=== PATIENT | female | born 1975 | race Caucasian/White ===

== ENCOUNTER → 2020-08-20 | Outpatient (CLI) | payer OTHER ==
[~2020-08-20] MED LIST: ALDACTONE50 MG PO; AUGMENTIN 875-1 EACH PO; BENTYL 20MG TAB20 MG PO; ESTRACE2 MG PO; IBU600 MG PO; LOPRESSOR 25 MG25 MG PO; PHENERGAN 25 MG25 M1 PO; PREDNISONE 20 M20 MG PO; PROTONIX40 MG PO; ROBAXIN500 MG PO; VISTARIL 50 MG50 MG PO
[2020-08-20 19:19] LABS: HEMOGLOBIN 13.9 gm/dl (12.3-15.3); RED BLOOD COUNT 4.73 M/UL (4.00-5.10); WHITE BLOOD COUNT 10.5 K/UL (4.5-11.0)
[2020-08-20 19:47] LABS: BUN/CREATININE RATIO 16 (0-10)
== END ==
LOC: LAB 17:37
PROVIDERS: Nurse Practitioner Family
DX: F41.9 Anxiety disorder, unspecified (principal); E66.9 Obesity, unspecified
CPT/HCPCS: 80053; 80061; 81001; 84439; 84443; 85025

== ENCOUNTER → 2021-06-08 | Outpatient (CLI) | payer OTHER ==
[2021-06-08 13:19] LABS: HEMOGLOBIN 13.7 gm/dl (12.3-15.3); RED BLOOD COUNT 4.73 M/UL (4.00-5.10); WHITE BLOOD COUNT 9.2 K/UL (4.5-11.0)
[2021-06-08 13:52] LABS: BUN/CREATININE RATIO 13 (0-10)
== END ==
LOC: LAB 12:17
PROVIDERS: Nurse Practitioner Family
DX: M25.562 Pain in left knee (principal); I10 Essential (primary) hypertension; E78.5 Hyperlipidemia, unspecified; F41.9 Anxiety disorder, unspecified; M54.50 Low back pain, unspecified; M17.12 Unilateral primary osteoarthritis, left knee
CPT/HCPCS: 36415; 72100; 73562; 80053; 80061; 81001; 84439; 84443; 84550; 85025; 85652; 86140

== ENCOUNTER 2021-06-13 15:34 | Emergency (ER) | payer OTHER | END 2021-06-13 20:00 | disposition home or self-care (01) | LOC: ER1 15:34 | DX: M79.89 Other specified soft tissue disorders (principal) | CPT/HCPCS: 99283 ==

== ENCOUNTER → 2021-06-15 | Outpatient (CLI) | payer OTHER | LOC: EXRD 14:30 | DX: M79.662 Pain in left lower leg (principal); E27.8 Other specified disorders of adrenal gland | CPT/HCPCS: 93971 ==

== ENCOUNTER → 2021-07-12 | Outpatient (CLI) | payer OTHER ==
[2021-07-12 13:01] LABS: HEMOGLOBIN 13.8 gm/dl (12.3-15.3); RED BLOOD COUNT 4.75 M/UL (4.00-5.10); WHITE BLOOD COUNT 9.9 K/UL (4.5-11.0)
[2021-07-12 13:23] LABS: BUN/CREATININE RATIO 17 (0-10)
[2021-07-13 12:21] LABS: PREALBUMIN 30 mg/dL (12-34)
== END ==
LOC: LAB 11:32
PROVIDERS: Nurse Practitioner Family
DX: I10 Essential (primary) hypertension (principal); E78.2 Mixed hyperlipidemia; E66.01 Morbid (severe) obesity due to excess calories; R10.13 Epigastric pain
CPT/HCPCS: 36415; 71046; 80053; 80061; 82728; 82746; 83036; 83540; 83735; 83921; 83970; 84100; 84134; 84425; 84443; 84446; 84590; 85027